=== PATIENT | male | born 1970 | race Caucasian/White ===

== ENCOUNTER 2020-06-07 13:35 | Emergency (ER) | payer OTHER ==
[~2020-06-07] VITALS: Ht 177.8 cm; Wt 102.1 kg
[2020-06-07 14:02] VITALS: BP_SYST 123
--- NOTE | 2020-06-07 14:02 | NUR ---
Patient to ER bed 03 to gown for evaluation. Side rails up.
--- NOTE | 2020-06-07 14:05 | NUR ---
Patient arrived in the ED c/o low back pain and urinary retention that started a week ago. Denied any chest pain or shortness of breath. Denied any fevers, chills, nausea or vomiting. Patient is alert and oriented x4, respirations even and unlabored, speaking in full sentences, and ambulating with a steady gait. VSS, pain level 7/10. Informed of the approximate wait time. Instructed to notify ED staff for any changes in condition or worsening of symptoms while waiting to be seen by an ED provider. Patient verbalized understanding.
--- NOTE | 2020-06-07 14:29 | NUR ---
ER Dr. Metcalf at bedside examining patient.
[2020-06-07] MEDS ORDERED: KETOROLAC TROMETHAMINE 60 MG/2 ML VIAL IM ONE (14:30)
[2020-06-07] MEDS ORDERED: ONDANSETRON 4 MG ODT TAB PO ONE (15:00)
[2020-06-07] MEDS ORDERED: MORPHINE 4 MG/ML INJ. SYRINGE IM ONE (15:00)
--- NOTE | 2020-06-07 16:38 | NUR ---
BLADDER SCAN DONE AT BEDSIDE BY MYSELF SHOWING 590ML OF URINE. MD NOTIFIED. PATIENT NOTIFIED
[2020-06-07 17:31] VITALS: BP_SYST 123
--- NOTE | 2020-06-07 17:31 | NUR ---
Patient given written and verbal discharge instructions and verbalizes understanding. ER MD discussed with patient the results and treatment provided. Patient in stable condition. ID arm band removed. Rx of [place], Flomax and Doxycycline given. Patient educated on pain management and to follow up with PMD. Pain Scale 0/10. Opportunity for questions provided and answered. Medication side effect fact sheet provided.
== END 2020-06-07 17:31 | disposition home or self-care (01) ==
LOC: SED 13:35
DX: N20.0 Calculus of kidney (principal); N39.0 Urinary tract infection, site not specified; R33.9 Retention of urine, unspecified
CPT/HCPCS: 74176; 76376; 81002; 96372; 99284; J1885; J2270; Q0162

== ENCOUNTER 2021-11-04 22:32 | Inpatient (IN) | payer MEDICAID, OTHER ==
[~2021-11-04] VITALS: Ht 177.8 cm; Wt 95.3 kg
[2021-11-04 22:40] VITALS: BP_SYST 96
[2021-11-04] MEDS ORDERED: NS 1000 ML IV.SOLN IV ONE (23:30)
[2021-11-04] MEDS ORDERED: PIPERACILLIN/TAZO 3.38 GM in D5W 50 ML IV ONE (23:30)
[2021-11-04] MEDS ORDERED: VANCOMYCIN HCL 1,000 MG in D5W 250 ML IV ONE (23:30)
[2021-11-05 00:23] LABS: RED CELL DISTRIBUTION WIDTH 13.6 % (9.0-15.0)
[2021-11-05 00:31] LABS: BASOPHILS # (AUTO) 0.1 K/uL (0.0-0.2); BASOPHILS % (AUTO) 0.5 % (0.0-2.0); EOSINOPHILS # (AUTO) 0.1 K/uL (0.0-0.4); EOSINOPHILS % (AUTO) 0.4 % (0.0-4.0); HEMATOCRIT 32.1 % (36-54); HEMOGLOBIN 10.7 g/dL (14.0-18.0); LYMPHOCYTES # (AUTO) 1.6 K/uL (1.0-5.5); LYMPHOCYTES % (AUTO) 10.4 % (20.5-51.5); MEAN CORPUSCULAR HEMOGLOBIN 27 pg (27-31); MEAN CORPUSCULAR HGB CONC 33 % (32-36); MEAN CORPUSCULAR VOLUME 82 fL (79.0-98.0); MONOCYTES # (AUTO) 1.2 K/uL (0.0-1.0); MONOCYTES % (AUTO) 8.2 % (1.7-9.3); NEUTROPHILS # (AUTO) 12.1 K/uL (1.8-7.7); NEUTROPHILS % (AUTO) 80.5 % (40.0-70.0); PLATELET COUNT (AUTO) 288 K/uL (130-430); RED BLOOD CELL COUNT(AUTO) 3.93 MIL/uL (4.2-6.2)
[2021-11-05] MEDS ORDERED: PIPERACILLIN/TAZOBACTAM 3.375 GM/VIAL (ZOSYN) IV ONE (00:33)
[2021-11-05] MEDS ORDERED: VANCOMYCIN HCL 1000 MG/VIAL IV ONE (00:34)
[2021-11-05 01:13] LABS: CALCIUM 8.5 mg/dL (8.4-11.0); CREATININE 0.91 mg/dL (0.55-1.30); POTASSIUM 3.1 mmol/L (3.5-5.1)
[2021-11-05 01:30] LABS: ALBUMIN 2.3 g/dL (3.4-4.8); TOTAL BILIRUBIN 0.3 mg/dL (0.0-1.0)
[2021-11-05 01:39] LABS: INR 1.1 (0.80-1.20); PROTHROMBIN TIME 11.6 SECS (9.5-12.5)
[2021-11-05] MEDS ORDERED: GLIP2.5T3 PO (07:01)
[2021-11-05] MEDS ORDERED: METF-518 PO (07:01)
[2021-11-05] MEDS: NACL 0.9% 1,000 ML IV SCH ×2 (08:22→20:20)
[2021-11-05 09:35] VITALS: BP_SYST 131
[2021-11-05] MEDS: PIPERACILLIN/TAZO 3.375/DEX-IS 50 ML IV SCH ×2 (12:06→17:42)
[2021-11-05] MEDS: INSULIN REGULAR, HUMAN 100 UNITS/ML, 10 ML VIAL (humuLIN R) SUBCUT PRN ×2 (12:12→17:44)
[2021-11-05] MEDS ORDERED: BISACODYL 10 MG/SUPPOSITORY RC PRN (12:30)
[2021-11-05] MEDS ORDERED: DOCUSATE SODIUM 100 MG CAPSULE PO ONE (12:45)
[2021-11-05 13:15] VITALS: BP_SYST 132
[2021-11-05] MEDS ORDERED: PIPERACILLIN/TAZO 3.375 GM in NS 50 ML IV SCH (14:00)
[2021-11-05] MEDS: VANCOMYCIN HCL 1,000 MG in NS 250 ML IV SCH ×2 (14:47→22:13)
[2021-11-05 16:03] VITALS: BP_SYST 119
[2021-11-05 20:10] VITALS: BP_SYST 113
[2021-11-05] MEDS: DOCUSATE SODIUM 100 MG CAPSULE PO SCH (22:12)
[2021-11-06] MEDS: PIPERACILLIN/TAZO 3.375/DEX-IS 50 ML IV SCH ×3 (00:38→14:29)
[2021-11-06] MEDS ORDERED: NALOXONE HCL 0.4 MG/ML AMP (NARCAN) IVP PRN (01:45)
[2021-11-06 01:48] VITALS: BP_SYST 120
[2021-11-06] MEDS: MORPHINE 2 MG/ML INJ. SYRINGE IVP PRN ×2 (01:59→06:42)
[2021-11-06] MEDS: NACL 0.9% 1,000 ML IV SCH (06:29)
[2021-11-06] MEDS: VANCOMYCIN HCL 1,000 MG in NS 250 ML IV SCH ×2 (06:31→14:28)
[2021-11-06] MEDS: INSULIN REGULAR, HUMAN 100 UNITS/ML, 10 ML VIAL (humuLIN R) SUBCUT PRN ×2 (06:38→13:16)
[2021-11-06 08:09] LABS: BASOPHILS # (AUTO) 0.1 K/uL (0.0-0.2); BASOPHILS % (AUTO) 0.5 % (0.0-2.0); EOSINOPHILS # (AUTO) 0.1 K/uL (0.0-0.4); EOSINOPHILS % (AUTO) 0.4 % (0.0-4.0); HEMOGLOBIN 9.9 g/dL (14.0-18.0); LYMPHOCYTES # (AUTO) 1.5 K/uL (1.0-5.5); LYMPHOCYTES % (AUTO) 10.3 % (20.5-51.5); MEAN CORPUSCULAR HEMOGLOBIN 27 pg (27-31); MEAN CORPUSCULAR HGB CONC 33 % (32-36); MEAN CORPUSCULAR VOLUME 82 fL (79.0-98.0); MONOCYTES # (AUTO) 1.1 K/uL (0.0-1.0); MONOCYTES % (AUTO) 7.3 % (1.7-9.3); NEUTROPHILS # (AUTO) 12.2 K/uL (1.8-7.7); NEUTROPHILS % (AUTO) 81.5 % (40.0-70.0); PLATELET COUNT (AUTO) 267 K/uL (130-430); RED BLOOD CELL COUNT(AUTO) 3.64 MIL/uL (4.2-6.2); RED CELL DISTRIBUTION WIDTH 13.4 % (9.0-15.0)
[2021-11-06 08:31] LABS: CALCIUM 7.7 mg/dL (8.4-11.0); CREATININE 0.85 mg/dL (0.55-1.30); POTASSIUM 3.3 mmol/L (3.5-5.1)
[2021-11-06 08:35] LABS: ALBUMIN 1.9 g/dL (3.4-4.8); TOTAL BILIRUBIN 0.5 mg/dL (0.0-1.0)
[2021-11-06] MEDS: DOCUSATE SODIUM 100 MG CAPSULE PO SCH (09:54)
[2021-11-06 12:33] VITALS: BP_SYST 120
== END 2021-11-06 15:45 | disposition left against medical advice (07) | DRG 720 ==
LOC: SED 22:32 → STU 11-05 06:50
PROVIDERS: ADMIT Internal Medicine; ATTEND Internal Medicine
DX: A41.9 Sepsis, unspecified organism (principal); E43 Unspecified severe protein-calorie malnutrition; A48.0 Gas gangrene; E11.52 Type 2 diabetes mellitus with diabetic peripheral angiopathy with gangrene; E87.1 Hypo-osmolality and hyponatremia; Z20.822 Contact with and (suspected) exposure to COVID-19; L03.115 Cellulitis of right lower limb; M72.9 Fibroblastic disorder, unspecified; E66.9 Obesity, unspecified; Z68.30 Body mass index [BMI] 30.0-30.9, adult
CPT/HCPCS: 36415; 71045; 73700-TC; 74021; 76376; 80053; 80202; 82962; 83605; 84484; 85025; 85610-TC; 87040; 87070-TC; 87186-TC; 93005; 96361; 96365; 99291; G0378; J1815; J2270; J2543; J3370; J7050; Q9967